=== PATIENT | male | born 1945 | race Caucasian/White ===

== ENCOUNTER 2018-03-06 22:35 | Observation (INO) ==
--- NOTE | 2018-03-06 23:18 | Emergency Department Note ---
Disposition Clinical Impression: Shortness of breath, Hx of cancer of lung Chest pain Qualifiers: Chest pain type: unspecified Qualified Code(s): R07.9 - Chest pain, unspecified Disposition: Admitted As Inpatient Condition: Good Time of Disposition: 02:05 General Adult HPI - General Chief complaint: ED Fever Time Seen by Provider: 03/06/18 22:44 Source: patient, EMS Mode of arrival: EMS Limitations: no limitations Nursing Notes Reviewed: Yes Vital Signs Reviewed: Yes - History of Present Illness HPI Narrative: Patient is a 72-year-old male that presents to the emergency department for cough and shortness of breath. Patient also states that he has had an associated fever. States that his fever is been 102.2. Patient states that his cough has been nonproductive. Patient also reports that he has had some increased shortness of breath. Patient states that he normally wears 2 and half to 3 L of oxygen at home but he has had increased oxygen requirement up to possibly 4 L. Patient states that he did take some ibuprofen prior to arrival. Patient states that he is feeling much better at this time. Patient states that he does have a history of lung cancer and received chemotherapy. Patient states that his last chemotherapy treatment was approximately 2 days ago. Pain Scale: 0 - Related Data Allergies Allergy/AdvReac Type Severity Reaction Status Date / Time No Known Allergies Allergy Verified 03/06/18 23:29 All systems ED: reviewed and negative except as stated. Constitutional: Reports: fever Respiratory: Reports: cough, dyspnea. Denies: sputum production Gastrointestinal: Reports: abdominal pain. Denies: nausea, vomiting Past Medical History - Past Medical History Medical history: Reports: cancer Psychiatric history: Reports: no psych history - Social History Smoking Status: Former smoker Smokeless Tobacco Status: No Alcohol use: Reports: none Drug use: Reports: none Physical Exam - General Limitations: no limitations General appearance: alert, in no apparent distress - Head Head exam: atraumatic, normocephalic - Eye Eye exam: Present: normal appearance, EOMI - Neck Neck exam: Present: normal inspection, full ROM, trachea midline - Respiratory Respiratory exam: Present: other (Diminished breath sounds ) - Cardiovascular Cardiovascular exam: Present: regular rate, normal rhythm, normal heart sounds, +S1, +S2 - Abdominal Exam Abdominal exam: Present: soft, Non-Tender, normal bowel sounds - Extremities Exam Extremities exam: Present: other (Mild nonpitting peripheral edema and bilateral lower extremities.) - Neurological Exam Neurological exam: Present: alert, oriented X3 - Psychiatric Psychiatric exam: Present: normal affect, normal mood - Skin Skin exam: Present: warm, dry, intact Course Vital Signs Temperature 99.2 F 03/06/18 22:47 Pulse Rate 86 03/06/18 22:47 Respiratory Rate 16 03/06/18 22:47 Blood Pressure 122/59 03/06/18 22:47 O2 Sat by Pulse Oximetry 96 03/06/18 22:47 Temperature 99.2 F 03/06/18 22:47 Pulse Rate 86 03/06/18 22:47 Respiratory Rate 16 03/06/18 22:47 Blood Pressure 122/59 03/06/18 22:47 O2 Sat by Pulse Oximetry 96 03/06/18 22:47 Oxygen Delivery Oxygen Delivery Room Air Medical Decision Making - MDM Narrative Medical decision making narrative: Due to the patient presenting to the emergency department stating that he had been febrile at home and coughing recently there is concern that he could potentially have pneumonia. We will obtain laboratory testing including blood cultures. We will also obtain a chest x-ray and EKG. Patient's EKG was nonischemic. Chest x-ray shows a left pleural effusion. Troponin was mildly elevated at 0.04. Patient has been chest pain-free but will be given aspirin. Patient has an elevated BNP of 390. Patient's hemoglobin is 7.1. Do not feel that this patient needs immediate transfusion but may require transfusion while hospitalized. Due to these findings of anemia, elevated troponin and having worsening of his baseline shortness of breath feel that is necessary for him to be admitted to the hospital for further evaluation and management. I called and spoke the admitting hospitalist Dr. Calles and he is except the patient to their service. Patient will be admitted to the hospital this time for further evaluation and management. - Medical Records Medical records reviewed: Yes I reviewed the patient's medical records. - Lab Data Lab results reviewed: Yes I reviewed the patient's lab results. - Radiology Data Radiology results reviewed: Yes I reviewed the patient's radiology results. Chest X-Ray 03/06/18 23:12 IMPRESSION: Left pleural effusion with multifocal left lung airspace disease, some of which most likely represents posttherapy changes. Without the benefit of a prior study chronicity cannot be evaluated. D/ / Jed Love MD / Jed Love MD Interpreting Provider: Jed Love MD - EKG Data EKG #1 EKG attestation: Yes I reviewed and interpreted this EKG. EKG results narrative: EKG showed a sinus rhythm at a rate of 70 bpm, KS interval of 132, curious duration of 106, QTc of 442 with a normal axis. No evidence of STEMI on EKG. EKG #2 EKG attestation: Yes I reviewed and interpreted this EKG. EKG results narrative: EKG at 2246 shows a sinus rhythm at a rate of 81 beats from it, KS interval of 129, QRS duration 104, QTc of 438 with a normal axis. No evidence of STEMI and EKG.
[2018-03-07] LABS: Eosinophils % 0.4 %; Hematocrit 21.7 % (37.5-50.1); Hemoglobin 7.1 g/dL (12.9-16.9); Immature Granulocytes % 1.6 % (0-4); Lymphocytes # 0.3 K/mcL (0.6-4.6); Lymphocytes % 3.7 %; Mean Corpuscular HGB Conc 32.7 g/dL (31.6-35.5); Mean Corpuscular Hemoglobin 27.4 pg (28.0-33.3); Mean Corpuscular Volume 83.8 fL (83.0-100.0); Mean Platelet Volume 9.7 fL (9.4-12.4); Monocytes % 0.3 %; Neutrophils # 6.6 K/mcL (1.6-8.9); Platelet Count 103 K/mcL (140-400); Red Blood Count 2.59 M/mcL (4.19-5.50); Red Cell Distribution Width 14.9 % (11.5-14.5)
[2018-03-07 00:30] LABS: BUN/Creatinine Ratio 22 (6-26); Blood Urea Nitrogen 18 mg/dL (8-23); Calcium 8.1 mg/dL (8.6-10.3); Carbon Dioxide 25 mEq/L (23-29); Chloride 101 mEq/L (98-107); Glucose 118 mg/dL (70-105); Osmolality,Calculated 283 (280-300); Platelet Estimate Slight Decrease (Normal); Potassium 3.7 mEq/L (3.5-5.1); Sodium 135 mEq/L (136-145); eGFR For Non-African Americans > 60 (> 60)
[2018-03-07 00:31] LABS: Anisocytosis 1+ (Not Present); Poikilocytosis 1+ (Not Present)
[2018-03-07 00:38] LABS: Troponin I 0.04 ng/mL (< 0.04)
[2018-03-07] MEDS ORDERED: Aspirin 81 MG TAB.CHEW PO STA (01:31)
[2018-03-07 02:09] LABS: Bilirubin,Urine Negative (Negative); Blood,Urine Trace (Negative); Clarity,Urine Clear (Clear); Color,Urine Yellow (Yellow); Glucose,Urine (UA) Normal (Normal); Ketones,Urine Negative (Negative); Leukocyte Esterase,Urine Negative (Negative); Nitrite,Urine Negative (Negative); Protein,Urine Trace mg/dL (Neg-Trace); Specific Gravity,Urine 1.022 (1.010-1.025); Urobilinogen,Urine Normal (Normal)
[2018-03-07 02:16] LABS: RBC,Urine 0-3 per hpf (0-3)
[2018-03-07 02:17] LABS: Squamous Epithelial Cell,Urine Moderate per lpf (None-Few); WBC,Urine 0-3 per hpf (0-3)
[2018-03-07 02:36] LABS: Bacteria,Urine Few per hpf (None-Few)
--- NOTE | 2018-03-07 02:59 | Emergency Department Note ---
Disposition Clinical Impression: Shortness of breath, Hx of cancer of lung, Fever of unknown origin Chest pain Qualifiers: Chest pain type: unspecified Qualified Code(s): R07.9 - Chest pain, unspecified Disposition: Admitted As Inpatient Condition: Good General Adult HPI - General Chief complaint: ED Fever Stated complaint: Fever, SOB Time Seen by Provider: 03/06/18 22:44 Source: patient, EMS Mode of arrival: EMS Limitations: no limitations Nursing Notes Reviewed: Yes Vital Signs Reviewed: Yes - History of Present Illness Pain Scale: 0 - Related Data Allergies Allergy/AdvReac Type Severity Reaction Status Date / Time No Known Allergies Allergy Verified 03/06/18 23:29 Constitutional: Reports: fever Respiratory: Reports: cough, dyspnea. Denies: sputum production Gastrointestinal: Reports: abdominal pain. Denies: nausea, vomiting Past Medical History - Past Medical History Medical history: Reports: cancer Psychiatric history: Reports: no psych history - Social History Smoking Status: Former smoker Smokeless Tobacco Status: No Alcohol use: Reports: none Drug use: Reports: none Physical Exam - General Limitations: no limitations General appearance: alert, in no apparent distress Course Vital Signs Temperature 99.2 F 03/06/18 22:47 Pulse Rate 86 03/06/18 22:47 Respiratory Rate 16 03/06/18 22:47 Blood Pressure 122/59 03/06/18 22:47 O2 Sat by Pulse Oximetry 96 03/06/18 22:47 Temperature 99.2 F 03/06/18 22:47 Pulse Rate 83 03/07/18 02:42 Respiratory Rate 18 03/07/18 02:42 Blood Pressure 121/55 03/07/18 02:42 O2 Sat by Pulse Oximetry 97 03/07/18 02:42 Oxygen Delivery Oxygen Delivery Room Air Medical Decision Making - Medical Records Medical records reviewed: Yes I reviewed the patient's medical records. - Lab Data Lab results reviewed: Yes I reviewed the patient's lab results. Result diagrams: 03/06/18 23:44 03/06/18 23:44 Lab Results 03/06/18 03/06/18 03/06/18 Range/Units 23:44 23:44 23:44 WBC 7.0 (4.3-11.1) K/mcL RBC 2.59 L (4.19-5.50) M/mcL Hgb 7.1 L (12.9-16.9) g/dL Hct 21.7 L (37.5-50.1) % MCV 83.8 (83.0-100.0) fL MCH 27.4 L (28.0-33.3) pg MCHC 32.7 (31.6-35.5) g/dL RDW 14.9 H (11.5-14.5) % Plt Count 103 L (140-400) K/mcL MPV 9.7 (9.4-12.4) fL Immature Gran % 1.6 (0-4) % Seg Neutrophils % 94.0 % Lymphocytes % 3.7 % Monocytes % 0.3 % Eosinophils % 0.4 % Basophils % 0.0 % Neutrophils # 6.6 (1.6-8.9) K/mcL Lymphocytes # 0.3 L (0.6-4.6) K/mcL Monocytes # 0.0 (0.0-1.3) K/mcL Eosinophils # 0.0 (0.0-0.6) K/mcL Basophils # 0.0 (0.0-0.2) K/mcL Platelet Estimate Slight Decrease L (Normal) Poikilocytosis 1+ A (Not Present) Anisocytosis 1+ A (Not Present) Sodium 135 L (136-145) mEq/L Potassium 3.7 (3.5-5.1) mEq/L Chloride 101 (98-107) mEq/L Carbon Dioxide 25 (23-29) mEq/L BUN 18 (8-23) mg/dL Creatinine 0.81 (0.70-1.30) mg/dL Est GFR ( Amer) > 60 (> 60) Est GFR (Non-Af Amer) > 60 (> 60) BUN/Creatinine Ratio 22 (6-26) Glucose 118 H (70-105) mg/dL Calculated Osmolality 283 (280-300) Lactic Acid 0.7 (0.5-2.2) mmol/L Calcium 8.1 L (8.6-10.3) mg/dL Troponin I 0.04 H* (< 0.04) ng/mL B-Natriuretic Peptide (Less than 100) pg/mL Urine Color (Yellow) Urine Clarity (Clear) Urine pH (5.0-8.0) pH Units Ur Specific [place] (1.010-1.025) Urine Protein (Neg-Trace) mg/dL Urine Glucose (UA) (Normal) mg/dL Urine Ketones (Negative) mg/dL Urine Blood (Negative) Urine Nitrite (Negative) Urine Bilirubin (Negative) Urine Urobilinogen (Normal) mg/dL Ur Leukocyte Esterase (Negative) Urine Microscopic RBC (0-3) per hpf Urine Microscopic WBC (0-3) per hpf Ur Squamous Epith Cells (None-Few) per lpf Urine Bacteria (None-Few) per hpf Ur Culture Indicated? (NO) 03/06/18 03/07/18 Range/Units 23:44 01:50 WBC (4.3-11.1) K/mcL RBC (4.19-5.50) M/mcL Hgb (12.9-16.9) g/dL Hct (37.5-50.1) % MCV (83.0-100.0) fL MCH (28.0-33.3) pg MCHC (31.6-35.5) g/dL RDW (11.5-14.5) % Plt Count (140-400) K/mcL MPV (9.4-12.4) fL Immature Gran % (0-4) % Seg Neutrophils % % Lymphocytes % % Monocytes % % Eosinophils % % Basophils % % Neutrophils # (1.6-8.9) K/mcL Lymphocytes # (0.6-4.6) K/mcL Monocytes # (0.0-1.3) K/mcL Eosinophils # (0.0-0.6) K/mcL Basophils # (0.0-0.2) K/mcL Platelet Estimate (Normal) Poikilocytosis (Not Present) Anisocytosis (Not Present) Sodium (136-145) mEq/L Potassium (3.5-5.1) mEq/L Chloride (98-107) mEq/L Carbon Dioxide (23-29) mEq/L BUN (8-23) mg/dL Creatinine (0.70-1.30) mg/dL Est GFR ( Amer) (> 60) Est GFR (Non-Af Amer) (> 60) BUN/Creatinine Ratio (6-26) Glucose (70-105) mg/dL Calculated Osmolality (280-300) Lactic Acid (0.5-2.2) mmol/L Calcium (8.6-10.3) mg/dL Troponin I (< 0.04) ng/mL B-Natriuretic Peptide 390 H (Less than 100) pg/mL Urine Color Yellow (Yellow) Urine Clarity Clear (Clear) Urine pH 6.0 (5.0-8.0) pH Units Ur Specific [place] 1.022 (1.010-1.025) Urine Protein Trace (Neg-Trace) mg/dL Urine Glucose (UA) Normal (Normal) mg/dL Urine Ketones Negative (Negative) mg/dL Urine Blood Trace H (Negative) Urine Nitrite Negative (Negative) Urine Bilirubin Negative (Negative) Urine Urobilinogen Normal (Normal) mg/dL Ur Leukocyte Esterase Negative (Negative) Urine Microscopic RBC 0-3 (0-3) per hpf Urine Microscopic WBC 0-3 (0-3) per hpf Ur Squamous Epith Cells Moderate H (None-Few) per lpf Urine Bacteria Few (None-Few) per hpf Ur Culture Indicated? NO (NO) - Radiology Data Radiology results reviewed: Yes I reviewed the patient's radiology results. Chest X-Ray 03/06/18 23:12 IMPRESSION: Left pleural effusion with multifocal left lung airspace disease, some of which most likely represents posttherapy changes. Without the benefit of a prior study chronicity cannot be evaluated. D/ / Jed Love MD / Jed Love MD Interpreting Provider: Jed Love MD Critical Care Time Critical Care Time: No Attestation Statement - Attestation Attestation: I, Stoney Vasquez MD, personally evaluated this patient and discussed their management with the resident physician. I reviewed the resident's note and agree with the documented findings, medical decision making, and plan of care. 71-year-old male with history of lung cancer who is on chemotherapy and had chemotherapy 2 days ago presents to the emergency department with a complaint of increased shortness of breath over the past 2 days. He also has developed a nonproductive cough over the past 2 days. He states he normally does not cough and does not have any shortness of breath. He also has had a fever. No abdominal pain. No vomiting or diarrhea. No urinary symptoms. No GI bleed symptoms. He does have some pain in the left chest however this is chronic and unchanged from his usual chronic left chest pain secondary to his lung cancer. He has had radiation therapy in the past. On examination patient is a well-developed well-nourished well-appearing elderly male in no acute distress. He is alert and oriented 3. There is no cyanosis or diaphoresis. Breath sounds are decreased on the left. No definite rales or wheezes noted. Heart regular rate and rhythm. Abdomen is soft and nontender with normal bowel sounds. Labs and imaging reviewed. The hospitalist, Dr. Calles, was consulted and accepted admission of the patient.
[2018-03-07] MEDS ORDERED: Naloxone 0.4 MG/ML INJ IVP PRN (03:51)
--- NOTE | 2018-03-07 04:26 | Internal Med History&Physical ---
Date of Encounter: 03/10/18 Time of Encounter: 04:24 Internal Medicine - H&P: HPI Chief complaint: Shortness of Breath/Fever/Chills History of present illness: Mr. Borges is a 72 year old male with a past medical history of lung cancer currently receiving chemotherapy and recent history of pulmonary embolism on Xarelto who presents with 2 day history of cough associated with fever, chills, and dyspnea on exertion. Patient reports new onset nonproductive cough which began approximately 2 days ago. Patient has a history of lung cancer and is currently receiving chemotherapy. His last cycle was administered last Friday. Over the past couple days he also reports alternating fever and chills. He checked his temperature at home and found it to be 102. Symptoms also include left-sided chest pain that is worse when he coughs. He is also noticed that he has been short of breath with minimal exertion. Laboratory findings were notable for a hemoglobin of 7.1. Patient reports that his hemoglobin was checked last Friday and it was found to be 8. He denies any dark stools or blood in his stool. Chest x-ray was performed which was notable for a left pleural effusion with multifocal left lung airspace disease some of which possibly representing post therapy changes. Patient was hemodynamically stable, afebrile and satting well on room air upon arrival. He reports that he is feeling better since coming into the ED. Blood cultures are currently pending. Patient denies any nausea, vomiting, abdominal pain or diarrhea. No reports of any sick contacts. Past Med Surg Social Fam HX - Past Medical History Medical history: cancer Psychiatric history: no psych history - Social History Smoking Status: Former smoker Smokeless Tobacco Status: No Alcohol use: none Drug use: none Internal Medicine - H&P: Meds Citalopram [CeleXA] 20 mg PO DAILY 03/07/18 [History] Fentanyl [Duragesic] 50 mcg TD Q3D 03/07/18 [History] Rivaroxaban [Xarelto] 20 mg PO DAILY 03/07/18 [History] Terazosin [Hytrin] 5 mg PO QPM #0 03/07/18 [History] Amlodipine Besylate 10 mg PO DAILY 03/09/18 [History] Morphine Oral CONC [Roxanol] 0.25 - 0.5 ml PO Q3-4H PRN 03/09/18 [History] 3 Allergy/AdvReac Type Severity Reaction Status Date / Time No Known Allergies Allergy Verified 03/06/18 23:29 All Systems PM: A 10-system review of systems was performed and is negative for pertinent findings except as documented above in the HPI. - Constitutional Constitutional: no chills, no fever(s), no night sweats - EENT Eyes: no change in vision, no discharge, no pain, no photophobia Ears: no ear discharge, no ear pain, no tinnitus Nose, mouth and throat: no dysphagia, no nasal discharge, no neck pain, no sore throat - Cardiovascular Cardiovascular ROS IM: no chest pain, no diaphoresis, no dyspnea, no lightheadedness, no palpitations, no syncope - Respiratory Respiratory: no cough, no dyspnea, no wheezing, no excessive phlegm production - Gastrointestinal Gastrointestinal: no abdominal pain, no diarrhea, no hematemesis, no hematochezia, no melena, no nausea, no vomiting - Musculoskeletal Musculoskeletal ROS IM: no numbness, no tingling - Integumentary Integumentary IM: no rash, no unusual bruising - Neurological Neurological ROS: no confusion, no convulsions, no focal weakness, no numbness, no tingling, no tremor(s) - Hematologic/Lymphatic Hematologic/Lymphatic: no easy bruising - Constitutional Vitals: Temp Pulse Resp BP Pulse Ox 98.5 F 79 16 149/54 95 03/07/18 03:41 03/07/18 03:41 03/07/18 03:41 03/07/18 03:41 03/07/18 03:41 Exam: General: Alert and oriented 3. Lying in bed in no acute distress Skin: Mild erythematous rash across the lower abdomen, no lesions. HEENT:EOM, pupils equal, round and reactive. Cardiovascular:Normal S1 & S2, no rubs, murmurs or gallops. No JVD. Pulse regular. Lungs: breath sounds clear to auscultation but slightly diminished at the left lower base, no wheezes or crackles. Abdomen:Soft, non-tender, no rigidity. Extremities:No deformity, no edema or tenderness, no joint swelling; bilateral clubbing noted in the hands. Neurological:Normal cognition and motor skills. Pulses:Carotid and radial pulses normal +2. Rest of the physical exam is non contributory Internal Med - H&P Results - Labs CBC & Chem 7: 03/09/18 06:42 03/09/18 06:42 - Assessment and plan (1) Nonproductive cough Status: Acute Assessment and plan: Nonproductive cough which seems to have resolved in the setting of left-sided lung cancer. Patient has no further symptoms. He is breathing well on room air. Chest x-ray showing left-sided pleural effusion with multifocal left lung airspace disease suggestive of post therapy changes. No previous imaging in our records to compare to. At this time patient remains afebrile and does not have an elevated white blood cell count, however, difficult to assess in the setting of on going chemotherapy. We will order CT scan of the chest to better characterize any possible acute pneumonic process and hold antibiotics for now given patient's improvement. Follow-up blood cultures. (2) Chest pain Status: Acute Assessment and plan: Chest pain pleuritic in the setting of lung CA. Mildly elevated troponins. EKG appears normal. We will trend troponin for now and monitor on telemetry. Qualifiers: Chest pain type: unspecified Qualified Code(s): R07.9 - Chest pain, unspecified (3) Shortness of breath Status: Acute Assessment and plan: Shortness of breath on exertion most likely secondary to anemia. We will consider transfusing 1 unit if repeat hemoglobin less than 7. (4) Anemia Status: Acute Assessment and plan: Normocytic anemia in the setting of treatment for PE on Xarelto. Possibly related to bone marrow suppression versus GI bleed. No reported history of GI bleed. Normal BUN. we will guaiac stool. Repeat CBC and consider transfusion if hemoglobin drops to less than 7. Patient reports no known cardiac disease. Qualifiers: Anemia type: unspecified type Qualified Code(s): D64.9 - Anemia, unspecified (5) Hx of cancer of lung Status: Acute Assessment and plan: History of lung cancer currently on chemotherapy. - Time Spent With Patient Total time spent is greater than 50% in coordination of care (as documented) at patient's floor/unit and/or counseling patient:
[2018-03-07 05:03] LABS: Immature Granulocytes % 1.4 % (0-4); Monocytes % 0.5 %; Red Cell Distribution Width 14.9 % (11.5-14.5)
[2018-03-07 05:05] LABS: Eosinophils # 0.1 K/mcL (0.0-0.6); Eosinophils % 1.8 %; Hematocrit 21.4 % (37.5-50.1); Hemoglobin 6.9 g/dL (12.9-16.9); Immature Platelets 2.5 % (1.1-6.1); Lymphocytes # 0.5 K/mcL (0.6-4.6); Lymphocytes % 7.7 %; Mean Corpuscular HGB Conc 32.2 g/dL (31.6-35.5); Mean Corpuscular Hemoglobin 27.7 pg (28.0-33.3); Mean Corpuscular Volume 85.9 fL (83.0-100.0); Neutrophils # 5.5 K/mcL (1.6-8.9); Platelet Count 107 K/mcL (140-400); Red Blood Count 2.49 M/mcL (4.19-5.50); Segmented Neutrophils % 88.6 %
[2018-03-07 05:24] LABS: Alanine Aminotransferase 8 Units/L (7-52); Albumin 2.6 g/dL (3.5-5.7); Alkaline Phosphatase 69 Units/L (34-104); Aspartate Amino Transferase 14 Units/L (13-39); BUN/Creatinine Ratio 23 (6-26); Bilirubin,Total 0.5 mg/dL (0.3-1.0); Blood Urea Nitrogen 16 mg/dL (8-23); Carbon Dioxide 28 mEq/L (23-29); Chloride 102 mEq/L (98-107); Globulin 2.6 g/dL (2.4-3.5); Glucose 124 mg/dL (70-105); Osmolality,Calculated 285 (280-300); Potassium 3.4 mEq/L (3.5-5.1); Sodium 136 mEq/L (136-145); Total Protein 5.2 g/dL (6.4-8.9); Troponin I < 0.03 ng/mL (< 0.04); eGFR For Non-African Americans > 60 (> 60)
[2018-03-07 05:29] LABS: Platelet Estimate Slight Decrease (Normal); Reactive Lymphocytes Present (Not Present)
[2018-03-07 05:30] LABS: Anisocytosis 1+ (Not Present)
[2018-03-07] MEDS ORDERED: Isovue-370 500 ML INFUS..BTL IV ONE (06:35)
[2018-03-07] MEDS: 0.9 % Sodium Chloride 1,000 ML IVC SCH ×2 (06:38→23:58)
--- NOTE | 2018-03-07 08:32 | Event Note ---
Date of Encounter: 03/07/18 Time of Encounter: 08:27 Patient seen and examined at bedside. H&P reviewed and agree with this plan. Patient states that he feels much improved and feels like he normally does today. Patient has been afebrile since admission with no tachypnea or respiratory distress and no continued cough and is on room air. Patient's hemoglobin has trended down very slightly from 7.1-6.9, 1 unit of packed red blood cells has been ordered. Last reported hemoglobin by patient was 8 recently; this is likely due to his continued chemotherapy and doubt current bleeding is patient denies any melena or hematochezia or nausea or hemoptysis; however the patient does have history of peptic ulcer disease. CTA of the chest has been ordered as well as stool for occult blood. Due to his history of pulmonary embolism with unknown duration and current anemia will hold Xarelto until results of CTA is obtained and trend hemoglobin. Will hold off on starting antibiotics due to the patient's benign appearance and no leukocytosis, or leukopenia or fever and resolution of cough. Discussed plan with patient who agrees and is comfortable with current plan. Physical exam is very benign other than decreased breath sounds in left base and coarse breath sounds in left sided chest.
[2018-03-07] MEDS ORDERED: 0.9 % Sodium Chloride 250 ML ONE (12:14)
[2018-03-07 17:10] LABS: Hematocrit 27.2 % (37.5-50.1); Mean Corpuscular HGB Conc 32.7 g/dL (31.6-35.5); Mean Corpuscular Hemoglobin 28.2 pg (28.0-33.3); Mean Corpuscular Volume 86.1 fL (83.0-100.0); Mean Platelet Volume 9.3 fL (9.4-12.4); Platelet Count 130 K/mcL (140-400); Red Blood Count 3.16 M/mcL (4.19-5.50); Red Cell Distribution Width 14.7 % (11.5-14.5)
[2018-03-07 17:12] LABS: Hemoglobin 8.9 g/dL (12.9-16.9)
[2018-03-07 21:26] LABS: Hematocrit 23.1 % (37.5-50.1); Hemoglobin 7.5 g/dL (12.9-16.9); Mean Corpuscular HGB Conc 32.5 g/dL (31.6-35.5); Mean Corpuscular Hemoglobin 27.6 pg (28.0-33.3); Mean Corpuscular Volume 84.9 fL (83.0-100.0); Mean Platelet Volume 9.8 fL (9.4-12.4); Platelet Count 103 K/mcL (140-400); Red Blood Count 2.72 M/mcL (4.19-5.50)
[2018-03-08 06:30] LABS: Eosinophils # 0.2 K/mcL (0.0-0.6); Eosinophils % 4.6 %; Hematocrit 23.1 % (37.5-50.1); Hemoglobin 7.5 g/dL (12.9-16.9); Immature Granulocytes % 1.1 % (0-4); Lymphocytes # 0.5 K/mcL (0.6-4.6); Lymphocytes % 13.2 %; Mean Corpuscular HGB Conc 32.5 g/dL (31.6-35.5); Mean Corpuscular Hemoglobin 27.7 pg (28.0-33.3); Mean Corpuscular Volume 85.2 fL (83.0-100.0); Monocytes % 0.8 %; Platelet Count 114 K/mcL (140-400); Red Blood Count 2.71 M/mcL (4.19-5.50); Red Cell Distribution Width 14.8 % (11.5-14.5); Segmented Neutrophils % 80.3 %
[2018-03-08 06:49] LABS: BUN/Creatinine Ratio 21 (6-26); Blood Urea Nitrogen 13 mg/dL (8-23); Calcium 8.1 mg/dL (8.6-10.3); Carbon Dioxide 25 mEq/L (23-29); Chloride 106 mEq/L (98-107); Glucose 99 mg/dL (70-105); Osmolality,Calculated 286 (280-300); Potassium 3.5 mEq/L (3.5-5.1); Sodium 138 mEq/L (136-145); eGFR For Non-African Americans > 60 (> 60)
[2018-03-08 07:49] LABS: Immature Reticulocyte % 2.7 % (11.0-38.0); Retculocyte # 0.01 M/mcL (0.05-0.10); Reticulocyte % 0.3 % (1.6-2.8)
[2018-03-08 08:00] LABS: % Iron Saturation 29 % (20-55); Iron 53 mcg/dL (65-175); Transferrin 129 mg/dL (203-362)
--- NOTE | 2018-03-08 08:05 | Internal Med Progress Note ---
Hospitalist Progress Note - Encounter Date of Encounter: 03/08/18 Time of Encounter: 08:03 - Subjective Interval History: Patient seen and examined at bedside. Patient no acute overnight events. Patient no reported evidence of bleeding. Patient received 1 unit of packed red blood cells yesterday and is feeling better today. Patient had CT of the chest which revealed no pulmonary embolism and no significant evidence of pneumonia. Hemoglobin improved after transfusion had an admission at slightly down since that. Explained to the patient that I would like to watch his hemoglobin for 1 additional day, we will start subcutaneous heparin for now. Explained to him I would check iron studies and a reticulocyte count. Patient denies any chest pain, shortness breath, nausea, vomiting, diarrhea. Patient states that he feels pretty much normal. - Exam Vitals: Temp Pulse Resp BP Pulse Ox 98.8 F 84 18 144/72 93 03/08/18 06:32 03/08/18 06:32 03/08/18 06:32 03/08/18 06:32 03/08/18 06:32 Exam: Constitutional: No acute distress, Alert Psych: AAO x 3 HEENT: NCAT, EOMI Neck: supple, no JVD Cardio: regular rate and rhythm, +s1s2, no murmurs/rubs/gallops, no JVD Resp: coarse breath sounds, no respiratory distress Abd: soft, non tender/non distended, positive bowel sounds Extremities: no clubbing/cyanosis/edema appreciated Neuro: no focal deficits appreciated - Assessment and Plan (1) Anemia Current Visit: Yes Status: Acute Assessment and Plan: Normocytic anemia in the setting of treatment for PE on Xarelto -suspect secondary to bone marrow suppression -stool negative for occult blood -No reported history of GI bleed -s/p 1 unit prbcs with improvement in hbg from 6.9 to 8.9 and now down to 7.5 x 2 -CTA chest reveals no PE currently -will check iron studies and reticulocyte count -follow cbc in am -start sub q heparin for now (2) Chest pain Current Visit: Yes Status: Acute Assessment and Plan: Chest pain pleuritic in the setting of lung CA associated with SOB both of which are resolved -possibly acute bronchospasm? -Mildly elevated troponins that have returned to normal -EKG appears normal. -no further chest pain (3) Shortness of breath Current Visit: Yes Status: Acute Assessment and Plan: -Shortness of breath on exertion most likely secondary to anemia -improved with transfusion prbcs -was associated with CP both of which are resolved; possibly due to bronchospasm -no evidence of pna on CTA (4) Hx of cancer of lung Current Visit: Yes Status: Acute Assessment and Plan: History of lung cancer currently on chemotherapy (5) Nonproductive cough Current Visit: Yes Status: Acute Assessment and Plan: Nonproductive cough which seems to have resolved in the setting of left-sided lung cancer -this has improved -no evidence of pna on imaging and no leukocytosis or fever -no abx for now DVT Prophylaxis: sub q heparin - Time Spent with Patient Total time spent is greater than 50% in coordination of care (as documented) at patient's floor/unit and/or counseling patient: 25 - 35 minutes Plan of Care Discussed with: patient Internal Medicine: Result - Labs CBC & Chem 7: 03/08/18 05:10 03/08/18 05:10 Labs: Short CBC 03/07/18 03/07/18 03/08/18 Range/Units 16:54 21:10 05:10 WBC 6.5 4.6 3.7 L (4.3-11.1) K/mcL Hgb 8.9 L D 7.5 L 7.5 L (12.9-16.9) g/dL Hct 27.2 L 23.1 L 23.1 L (37.5-50.1) % Plt Count 130 L 103 L 114 L (140-400) K/mcL Neutrophils # 3.0 (1.6-8.9) K/mcL BMP 03/08/18 05:10 Sodium 138 Potassium 3.5 Chloride 106 Carbon Dioxide 25 BUN 13 Creatinine 0.62 L Glucose 99 Calcium 8.1 L - Impressions Impressions Chest CTA 03/07/18 06:35 IMPRESSION: 1. No evidence of pulmonary embolism. 2. A dominant mass in the superior segment of the left lower lobe measuring 6.5 x 3.3 cm may represent a primary malignancy. Additional irregular nodules throughout the left upper and left lower lobes likely represent metastatic disease. No significant lymphadenopathy. 3. Left paramediastinal reticular and consolidative opacities can be seen with radiation therapy. Please correlate with clinical history. 4. Small to moderate left pleural effusion. D/ / Carmine Serna MD / Carmine Serna MD Interpreting Provider: Carmine Serna MD Consult Discharge Plan - Plan Referrals: Yazmin Gomes, [employer] [Primary Care Provider] - (1) Anemia Qualifiers: Anemia type: unspecified type Qualified Code(s): D64.9 - Anemia, unspecified (2) Chest pain Qualifiers: Chest pain type: unspecified Qualified Code(s): R07.9 - Chest pain, unspecified
[2018-03-08 08:19] LABS: Ferritin 431 ng/mL (20-250)
[2018-03-08] MEDS: *HR* Heparin 5,000 UNIT/ML VIAL SQ SCH ×3 (18:31→23:09)
[2018-03-09] MEDS: *HR* Heparin 5,000 UNIT/ML VIAL SQ SCH (05:31)
[2018-03-09 07:12] LABS: Eosinophils # 0.1 K/mcL (0.0-0.6); Hematocrit 25.2 % (37.5-50.1); Hemoglobin 8.2 g/dL (12.9-16.9); Mean Corpuscular HGB Conc 32.5 g/dL (31.6-35.5); Mean Corpuscular Hemoglobin 28.1 pg (28.0-33.3); Mean Corpuscular Volume 86.3 fL (83.0-100.0); Mean Platelet Volume 9.4 fL (9.4-12.4); Platelet Count 103 K/mcL (140-400); Red Blood Count 2.92 M/mcL (4.19-5.50); Red Cell Distribution Width 14.6 % (11.5-14.5)
[2018-03-09 07:34] LABS: BUN/Creatinine Ratio 17 (6-26); Blood Urea Nitrogen 11 mg/dL (8-23); Calcium 8.2 mg/dL (8.6-10.3); Carbon Dioxide 28 mEq/L (23-29); Chloride 104 mEq/L (98-107); Glucose 109 mg/dL (70-105); Osmolality,Calculated 284 (280-300); Potassium 3.5 mEq/L (3.5-5.1); Sodium 137 mEq/L (136-145); eGFR For Non-African Americans > 60 (> 60)
--- NOTE | 2018-03-09 08:18 | Discharge Summary ---
- NOTES TO OUTPATIENT PROVIDER Notes to Outpatient Provider: Please follow the patient's hemoglobin has a sounds are also and chronically anemic he required 1 transfusion of packed red blood cells during this hospitalization; discharge hemoglobin is 8.2 which appears to be his baseline per his . FOB negative. Please check hemoglobin at follow-up visit which should occur this week within 3-5 days. Patient aware of this. Date of Encounter: 03/09/18 Time of Encounter: 08:18 - Discharge Diagnosis (1) Anemia Priority: Primary Status: Acute Qualifiers: Anemia type: unspecified type Qualified Code(s): D64.9 - Anemia, unspecified (2) Chest pain Priority: Secondary Status: Acute Qualifiers: Chest pain type: unspecified Qualified Code(s): R07.9 - Chest pain, unspecified (3) Shortness of breath Priority: Secondary Status: Acute (4) Hx of cancer of lung Priority: Secondary Status: Acute (5) Nonproductive cough Priority: Secondary Status: Acute Hospital course: Mr. Borges is a 72 year old male presented to the emergency department with episode of chest pain and shortness of breath. The patient was ready to the hospital for further evaluation as he has lung cancer and history of pulmonary emphysema and Xarelto. Patient was found to be anemic which trended down to 6.9 and required 1 unit of packed red blood cells. The patient's baseline hemoglobin is around 8. His . The patient's fecal occult blood was negative. The patient's hemoglobin was stable and discharge was 8.2 prior to discharge. Xarelto was resumed prior to discharge. Etiology of his acute chest pain and shortness of breath is unclear as is resolved rapidly in the emergency department without much intervention. CTA of the chest was repeated and did not reveal any evidence of current pulmonary embolism and no significant evidence of any infectious etiology. Had long discussion with patient and regarding resuming anticoagulation and they are in agreement that we should resume Xarelto due to his high risk of DVT and PE with his current lung cancer which I think is appropriate. Patient stable condition and will be discharged on 03/09/2018. Questions answered. Patient should follow with primary care physician within one week and have his hemoglobin checked within 3-5 days. Discharge discussed with: patient, nurse - Time Spent with Patient Total time spent providing and/or coordinating discharge services: Greater than 30 minutes - Discharge Medications Home Medications: Citalopram [CeleXA] 20 mg PO DAILY 03/07/18 [History] Fentanyl [Duragesic] 50 mcg TD Q3D 03/07/18 [History] Rivaroxaban [Xarelto] 20 mg PO DAILY 03/07/18 [History] Terazosin 5 mg PO DAILY 03/07/18 [History] Morphine Oral CONC [Roxanol] 0.25 - 0.5 ml PO Q3-4H PRN 03/09/18 [History] Allergies/Adverse Reactions: 3 Allergy/AdvReac Type Severity Reaction Status Date / Time No Known Allergies Allergy Verified 03/06/18 23:29 Date of admission: 03/07/18 02:49 Primary care physician: Yazmin Gomes CNP - Constitutional Vitals: Temp Pulse Resp BP Pulse Ox 99.3 F 74 17 153/80 94 03/09/18 07:16 03/09/18 07:16 03/09/18 07:16 03/09/18 07:16 03/09/18 07:16 Exam: Constitutional: No acute distress, Alert Psych: AAO x 3 HEENT: NCAT, EOMI Neck: supple Cardio: regular rate and rhythm, +s1s2 Resp: coarse breath sounds, no respiratory distress Abd: soft, non tender/non distended, positive bowel sounds Extremities: no clubbing/cyanosis/edema appreciated Neuro: no focal deficits appreciated - Patient Status Disposition: Home, Self-Care Condition: Good Functional capacity at discharge: independent ambulation Overall status at discharge: patient is back to baseline - Discharge Instructions Follow Up With: Yazmin Gomes CNP [Primary Care Provider] - - Diet and Activity Activity: increase activity as tolerated Diet: advance to your usual diet
[2018-03-09 08:48] LABS: Lymphocytes # 0.4 K/mcL (0.6-4.6); Neutrophils # 2.3 K/mcL (1.6-8.9)
[2018-03-09 08:52] LABS: Anisocytosis 1+ (Not Present)
[2018-03-09 08:53] LABS: Dohle Bodies Present (Not Present); Poikilocytosis 1+ (Not Present)
[2018-03-09 08:54] LABS: Platelet Estimate Decreased (Normal)
[2018-03-09 11:08] VITALS: BP 155/69
[2018-03-09] MEDS ORDERED: *HR* Rivaroxaban 10 MG TABLET PO SCH (17:00)
[2018-03-10] MEDS ORDERED: *HR* FentaNYL PATCH 50 MCG PATCH TD SCH (01:00)
--- NOTE | 2018-03-10 06:32 | Electrocardiograph Report ---
[place] [id number] Test Date: 2018-03-06 Pat Name: Jorge Borges Department: EXAMHB1 Room: 2A Gender: M Compass Operator: : 1945 Requested By: Elvin Walker Order Number: [id number] Reading MD: Kye العراقي Measurements Intervals [place] Rate: 81 P: 82 NE: 129 QRS: 50 QRSD: 104 T: 57 QT: 377 QTc: 438 Interpretive Statements Sinus rhythm Atrial premature complex Electronically Signed On 03-10-2018 6:30:57 EDT by Kye العراقي
--- NOTE | 2018-03-10 06:36 | Electrocardiograph Report ---
[place] [id number] Test Date: 2018-03-06 Pat Name: Jorge Borges Department: EXAM4 Room: 2A Gender: M Performance Improvement Coordinator: : 1945 Requested By: Aftab Albert Order Number: [id number] Reading MD: Kye العراقي Measurements Intervals [place] Rate: 78 P: 90 MA: 132 QRS: 66 QRSD: 106 T: 63 QT: 388 QTc: 442 Interpretive Statements Sinus rhythm Electronically Signed On 03-10-2018 6:34:33 EDT by Kye العراقي
== END 2018-03-09 12:41 | disposition home or self-care (01) ==
LOC: EMEROOARM 22:35 → 2ANU 22:35 → SUATTDRO 03-07 02:49 → 2ANU 03-07 03:00
PROVIDERS: ADMIT Internal Medicine; ATTEND Internal Medicine

== ENCOUNTER 2019-12-20 14:37 | Inpatient (IN) ==
[2019-12-20] MEDS: *HR* HYDROmorphone 20 MG/20 ML PCA IVC PRN (17:36)
[2019-12-20] MEDS: *HR* LORazepam 0.5 MG TABLET PO SCH ×2 (17:38→22:18)
[2019-12-20] MEDS: Gabapentin 300 MG CAPSULE PO SCH (20:43)
[2019-12-21] MEDS: *HR* LORazepam 0.5 MG TABLET PO SCH ×3 (04:12→16:12)
[2019-12-21] MEDS ORDERED: *HR* HYDROmorphone (PF) 1 MG/ML SYRINGE IVP ONE ×3 (04:25→13:41)
[2019-12-21] MEDS: *HR* HYDROmorphone 20 MG/20 ML PCA IVC PRN ×2 (07:50→16:52)
[2019-12-21] MEDS: polyethylene glycoL 3350 17 GM POWD.PACK PO SCH (08:02)
[2019-12-21] MEDS: Aspirin Enteric Coated 81 MG Tablet PO SCH (08:02)
[2019-12-21] MEDS ORDERED: *HR* HYDROmorphone 2 MG/ML SYRINGE IVP ONE (09:03)
[2019-12-21] MEDS: dexAMETHasone 4 MG TABLET PO SCH ×2 (10:24→13:54)
[2019-12-21] MEDS ORDERED: *HR* HYDROmorphone 20 MG/20 ML PCA IVC PRN ×2 (11:26→13:45)
[2019-12-21] MEDS ORDERED: dexAMETHasone 4 MG TABLET PO SCH (16:36)
[2019-12-21] MEDS ORDERED: *HR* LORazepam 1 MG TABLET PO PRN (18:18)
[2019-12-21] MEDS: *HR* LORazepam 1 MG TABLET PO SCH (18:51)
[2019-12-21] MEDS ORDERED: 0.9 % Sodium Chloride 1,000 ML ONE (19:31)
[2019-12-21] MEDS: Gabapentin 300 MG CAPSULE PO SCH (19:50)
[2019-12-22] MEDS: *HR* LORazepam 1 MG TABLET PO SCH ×2 (00:49→06:11)
[2019-12-22] MEDS: *HR* HYDROmorphone 20 MG/20 ML PCA IVC PRN (01:02)
[2019-12-22] MEDS: dexAMETHasone 4 MG TABLET PO SCH ×2 (09:02→12:48)
[2019-12-22] MEDS: Aspirin Enteric Coated 81 MG Tablet PO SCH (09:02)
[2019-12-22] MEDS: polyethylene glycoL 3350 17 GM POWD.PACK PO SCH (09:02)
[2019-12-22] MEDS ORDERED: *HR* HYDROmorphone 20 MG/20 ML PCA IVC PRN (09:48)
[2019-12-22] MEDS ORDERED: haloperidoL 1 MG TABLET PO PRN (09:53)
[2019-12-22] MEDS ORDERED: *HR* LORazepam 0.5 MG TABLET PO SCH (12:00)
[2019-12-22] MEDS ORDERED: *HR* HYDROmorphone (PF) 1 MG/ML SYRINGE IVP ONE (13:14)
[2019-12-22] MEDS ORDERED: *HR* HYDROmorphone (PF) 1 MG/ML SYRINGE IVP PRN (15:28)
[2019-12-22] MEDS ORDERED: *HR* FentaNYL PATCH 50 MCG PATCH TD SCH (15:30)
[2019-12-22] MEDS ORDERED: *HR* LORazepam 1 MG TABLET PO SCH ×2 (18:35)
[2019-12-22] MEDS: *HR* LORazepam 0.5 MG TABLET PO SCH ×2 (18:47→22:41)
[2019-12-22] MEDS: Gabapentin 300 MG CAPSULE PO SCH (20:10)
[2019-12-22] MEDS: *HR* HYDROmorphone 4 MG TABLET PO SCH (22:41)
[2019-12-23] MEDS: *HR* HYDROmorphone 4 MG TABLET PO SCH ×3 (00:57→07:51)
[2019-12-23] MEDS: *HR* LORazepam 0.5 MG TABLET PO SCH (05:28)
[2019-12-23] MEDS: dexAMETHasone 4 MG TABLET PO SCH ×2 (07:51→13:18)
[2019-12-23] MEDS: Aspirin Enteric Coated 81 MG Tablet PO SCH (07:51)
[2019-12-23] MEDS: polyethylene glycoL 3350 17 GM POWD.PACK PO SCH (07:51)
[2019-12-23 08:22] VITALS: BP 147/54
[2019-12-23] MEDS ORDERED: *HR* HYDROmorphone 4 MG TABLET PO PRN (09:33)
[2019-12-23] MEDS ORDERED: *HR* LORazepam 0.5 MG TABLET PO PRN (09:50)
== END 2019-12-23 13:44 | disposition hospice, home (50) | DRG 951 ==
LOC: 2ANU 16:01
PROVIDERS: ADMIT Internal Medicine Hospice and Palliative Medicine; ATTEND Internal Medicine Hospice and Palliative Medicine